=== PATIENT | female | born 1980 | race Hispanic/Latino ===

== ENCOUNTER 2022-01-31 16:56 | Emergency (ER) | payer OTHER, SELFPAY ==
[2022-01-31 16:58] VITALS: BP 123/75; PULSE 105; RESP 16; RESP 18; TEMP 36.3; O2SAT 99; BMI 33.3
--- NOTE | 2022-01-31 18:13 | CM.ED ---
JULIETA Note JULIETA met with patient and her friend. Patient's friend advised that patient does not speak [place]ian. SW provided financial assistance packet and resources on [facility]. Friend asked about applying for medicaid as patient is on a work visa. SW encouraged patient to apply. Friend said that patient's daughter has medicaid but SW inquired if daughter was born in the [place] and friend said that she was. No further issues or concerns voiced. Nataly MCCLAIN
--- NOTE | 2022-01-31 18:18 | EDS_ITS ---
HPI History of Present Illness Chief Complaint: Syncope Detail of Chief Complaint: Patient did not have syncope and she had vertigo Informant: patient and other (multiple games dealer service was used since patient speaks no Singaporean. Total time 42 minutes) Limited: language barrier Onset/Context/Timing Onset: Today and Hours Context: Sudden Onset Timing: Intermittent Quality: Spinning sensation with change in head position Location: Not applicable Current Severity: Mild Maximum Severity: Severe Worsened by: Turning to her right or turning to her left Relieved by: May need still Associated Symptoms Associated Symptoms: Nausea and vomiting Narrative Narrative: Patient is a 41-year-old non-Singaporean speaking woman. She states this morning when she woke and rolled out of bed she became dizzy and had vomiting. This lasted about 5 minutes. She is had several episodes since this morning. All of her episodes of been associated with nausea and vomiting. She denied double vision or blurred vision. She denied trouble with speech or swallowing. She denies paresthesia, anesthesia motors. She states her balance is off when she becomes dizzy. Her eyes seem to move and her vision is altered. She is on no medication. She does not smoke or drink. She denies drug use. She reports hives with amoxicillin. Prior similar symptoms: No Recent Illness/Hospitalization: No PFSH PFSH Medical History no medical history no medical history Home Medications NK 01/31/22 [History Last Taken Unknown] Allergy/AdvReac Type Severity Reaction Status Date / Time amoxicillin Allergy Rash Verified 01/31/22 17:03 Family History no significant family his no significant family history Surgical History no surgical history no surgical history Social History (Updated 01/31/22 @ 18:[address] James Garcia MD) household members: spouse Smoking Status: Never smoker alcohol intake: never substance use type: does not use ROS ROS ED Constitutional Constitutional ED: Denies chills, fever(s), subjective, sweats or weight loss Eyes Eyes: Reports change in vision; Denies blurry vision or diplopia ENT ENT ED: Denies ear pain, rhinorrhea or sore throat Cardiovascular Cardiovascular: Denies chest pain, orthopnea, palpitations, paroxysmal nocturnal dyspnea or racing heartbeat Respiratory/Chest Respiratory/Chest: Denies cough, dyspnea, dyspnea on exertion, orthopnea or paroxysmal nocturnal dyspnea Gastrointestinal Gastrointestinal: Reports nausea and vomiting; Denies abdominal pain, constipation, diarrhea or melena Genitourinary Genitourinary ED: Denies dysuria, hematuria or urinary frequency Musculoskeletal Musculoskeletal: Denies arthralgias, back pain, myalgias or neck pain Integumentary Denies abscess, Abrasions or rash Neurologic Neurologic: Reports headache(s); Denies paresthesias or weakness Psychiatric Psychiatric: Denies anxiety or depression Endocrine Endocrinology: Denies cold intolerance or heat intolerance Hematologic/Lymphatic Hematologic/Lymphatic: Reports systems reviewed and no addt'l complaints, except as documented and none EXAM Physical Exam Const Vital Signs: 01/31/22 16:58 01/31/22 16:58 01/31/22 17:19 Temperature 97.3 F L 97.3 F L Temperature Source Temporal Temporal Pulse Rate 105 H 105 H Respiratory Rate 16 18 Respiratory Effort Normal Non-Labored Respiratory Pattern Normal Blood Pressure 123/75 H 123/75 H Blood Pressure Mean 91 91 Pulse Ox 99 99 Oxygen Delivery Method Room Air Room Air Positive well nourished, well developed and obese General Appearance ED: well developed and NAD; Negative for cyanotic, diaphoretic or pallor Nutritional Appearance: obese HEENT Reports moist mucous membranes HEENT Narrative: Head is normocephalic atraumatic. Ears normal. TMs normal. External auditory canal normal. Nares patent. No drainage. Uvula midline. No deviation of p rotrusion. There is no erythema exudate the posterior pharynx. Eyes PERRL and EOMs intact bilaterally Eyes Narrative: There is no nystagmus. There is no APD. There is no papilledema. General Eye ED: Negative for pale conjunctiva or scleral icterus Neck no lymphadenopathy, supple and no JVD Neck Narrative: There is no carotid bruit. Resp normal respiratory effort and clear to auscultation bilaterally Cardio regular rate, regular rhythm, S1 normal heart sound, S2 normal heart sound and no murmurs GI normal to inspection, nondistended, normoactive bowel sounds, non-tender and non-distended Auscultation: normoactive bowel sounds Back/Spine no CVA tenderness Cervical Spine: Negative for cervical spine tenderness Thoracic Spine / Upper Back: Negative for thoracic spinal tenderness Extremity normal to inspection General Extremety ED: Negative for edema or tenderness General Extremity: Negative for edema Neuro oriented x3, CN's II-XII intact bilaterally and no sensory deficits noted Neuro Narrative: There is no dysmetria. There is no abnormality with Romberg test eyes open and close. The eye askew test and hint test were both negative. Kimball-Hallpike maneuver was positive worse on the right. Jasen maneuver was performed. Jasen maneuver took 25 minutes. Sensorium / Orientation: alert Motor Exam: strength 5/5 throughout Skin no rashes or lesions noted, no wounds and skin turgor normal General Skin Exam: elasticity normal; Negative for jaundice or pallor MDM MDM MDM Narrative Medical decision making narrative: History and physical exam are consistent with peripheral vertigo. There is no evidence of cerumen impaction. Patient's history and physical is consistent with benign paroxysmal positional vertigo. Patient symptoms resolved with Jasen maneuver. She was reassessed at 1820. She remains asymptomatic. She will be discharged home with appropriate home-going instructions. Discharge Plan Triage Chief Complaint: Syncope ED Provider: James Garcia Dx/Rx/DC Orders Clinical Impression: Benign paroxysmal positional vertigo Instructions: ED BPV Vertigo Prescriptions: No Action NK Primary Care Provider: Care Physician,No Primary Referrals: Care Physician,No Primary [Primary Care Provider] - Print Language: [place]ian Disposition Disposition: Home, Self Care
[2022-01-31 18:34] VITALS: BP 127/66; PULSE 72; RESP 16; O2SAT 98
== END 2022-01-31 18:35 | disposition home or self-care (01) ==
PROVIDERS: Emergency Provider Emergency Medicine; Visit Provider Emergency Medicine
DX: H81.10 Benign paroxysmal vertigo, unspecified ear (principal); R55 Syncope and collapse
CPT/HCPCS: 99282